=== PATIENT | male | born 1970 | race American Indian/Alaskan Native ===

== ENCOUNTER 2021-02-24 15:11 | Emergency (ER) | payer BC, OTHER ==
--- NOTE | 2021-02-24 15:31 | EDM.PDOC ---
ED HPI GENERAL MEDICAL PROBLEM - General Chief Complaint: Cardiovascular Problem Stated Complaint: CHEST PAIN Time Seen by Provider: 02/24/21 16:00 Source of Information: Reports: Patient, RN. Denies: Old Records History Limitations: Reports: Other (no old records) - History of Present Illness INITIAL COMMENTS - FREE TEXT/NARRATIVE: 51 yo NA male 1 ppd smoker presents with lateral chest tightness. No associated sx's. Has had this in the past and it was not worked up. No SOB, nausea or diaphoresis. No pHx of CAD. Sx's sometimes worse with deep breathing. No injury to his chest wall recalled. Denies a hx of AODM. Onset: Today, Sudden Onset Date: 02/24/21 Duration: Hour(s):, Waxing/Waning Location: Reports: Chest Quality: Reports: Other (mild lateral tightness) Severity: Mild Improves with: Reports: Other (shallow breathing) Worsens with: Reports: Breathing (deep) Context: Reports: Other (See HPI) Associated Symptoms: Reports: Chest Pain. Denies: Cough, Diaphoresis, Fever/Chills, Nausea/Vomiting, Shortness of Breath Treatments PARTS SPECIALIST: Reports: Other (see below) (none) - Related Data Allergies Allergy/AdvReac Type Severity Reaction Status Date / Time No Known Allergies Allergy Verified 02/24/21 15:32 Home Meds: Home Meds NK [No Known Home Meds] 02/24/21 [History] ED ROS GENERAL - Review of Systems Review Of Systems: See Below Constitutional: Reports: No Symptoms HEENT: Reports: No Symptoms Respiratory: Denies: Shortness of Breath, Wheezing, Pleuritic Chest Pain, Cough, Sputum, Hemoptysis Cardiovascular: Reports: Chest Pain. Denies: Blood Pressure Problem, Dyspnea on Exertion, Edema, Palpitations, Syncope GI/Abdominal: Reports: No Symptoms : Reports: No Symptoms Musculoskeletal: Reports: No Symptoms Skin: Reports: No Symptoms Neurological: Reports: No Symptoms ED EXAM, GENERAL - Physical Exam Exam: See Below Exam Limited By: No Limitations General Appearance: Alert, WD/WN, No Apparent Distress, Obese Eye Exam: Bilateral Eye: Normal Inspection Ears: Normal External Exam, Normal Canal, Hearing Grossly Normal Ear Exam: Bilateral Ear: Auricle Normal, Canal Normal Nose: Normal Inspection, No Blood Throat/Mouth: Normal Inspection, Normal Lips, Normal Oropharynx, Normal Voice, No Airway Compromise Head: Atraumatic, Normocephalic Neck: Normal Inspection Respiratory/Chest: No Respiratory Distress, Lungs Clear, Normal Breath Sounds, No Accessory Muscle Use. No: Chest Non-Tender (lateral chest wall tenderness, bilateral, present) Cardiovascular: Regular Rate, Rhythm, No Edema GI/Abdominal: Normal Bowel Sounds, Soft, Non-Tender, No Distention Back Exam: Normal Inspection. No: CVA Tenderness (R), CVA Tenderness (L) Extremities: Normal Inspection, Normal Range of Motion, Non-Tender, No Pedal Edema Neurological: Alert, Oriented, CN II-XII Intact, Normal Cognition, No Motor/Sensory Deficits Psychiatric: Normal Affect, Normal Mood Skin Exam: Warm, Dry, Intact, Normal Color, No Rash #1 Interpretation EKG Date: 02/24/21 Time: 15:25 Rhythm: NSR Rate (Beats/Min): 61 [place]: Normal P-Wave: Present QRS: Normal ST-T: Normal QT: Normal Comparison: NA - No Prior EKG Course - Vital Signs Last Recorded V/S: Last Vital Signs Temp 36.3 C 02/24/21 15:39 Pulse 68 02/24/21 15:39 Resp 14 02/24/21 15:39 BP 138/66 02/24/21 15:39 Pulse Ox 98 02/24/21 15:39 - Orders/Labs/Meds Orders: Active Orders 24 hr Category Date Time Status Cardiac Monitoring [RC] .As Directed Care 02/24/21 16:06 Active EKG Documentation Completion [RC] ASDIRECTED Care 02/24/21 15:24 Active EKG 12 Lead [EK] Routine Ther 02/24/21 15:23 Ordered Labs: Laboratory Tests 02/24/21 Range/Units 16:17 Sodium 142 (140-148) mmol/L Potassium 4.0 (3.6-5.2) mmol/L Chloride 101 (100-108) mmol/L Carbon Dioxide 33 H (21-32) mmol/L Anion Gap 12.0 (5.0-14.0) mmol/L BUN 13 (7-18) mg/dL Creatinine 1.0 (0.8-1.3) mg/dL Est Cr Clr Drug Dosing 86.45 mL/min Estimated GFR (MDRD) > 60 (>60) Glucose 110 H (74-106) mg/dL Calcium 10.9 H (8.5-10.1) mg/dL Troponin I < 0.017 (0.000-0.056) ng/mL Departure - Departure Time of Disposition: 17:00 Disposition: Home, Self-Care 01 Condition: Fair Clinical Impression: Atypical chest pain, Tobacco use disorder Instructions: Smoking Tobacco Information, Adult, Nonspecific Chest Pain, Adult Referrals: PCP,None [Primary Care Provider] - Forms: ED Department Discharge Additional Instructions: There was no evidence today that this is your heart and you have not had a heart attack. Your tobacco use makes you high risk for heart disease. I recommend that you consult with a primary care provider to get either a cardiology consultation or an exercise stress test. Return if you are worse. Sepsis Event Note (ED) - Focused Exam Vital Signs: Vital Signs Temp Pulse Resp BP Pulse Ox 02/24/21 15:39 36.3 C 68 14 138/66 98 - My Orders Last 24 Hours: My Active Orders 02/24/21 15:23 EKG 12 Lead [EK] Routine 02/24/21 15:24 EKG Documentation Completion [RC] ASDIRECTED 02/24/21 16:06 Cardiac Monitoring [RC] .As Directed - Assessment/Plan Last 24 Hours: My Active Orders 02/24/21 15:23 EKG 12 Lead [EK] Routine 02/24/21 15:24 EKG Documentation Completion [RC] ASDIRECTED 02/24/21 16:06 Cardiac Monitoring [RC] .As Directed
== END 2021-02-24 17:17 | disposition home or self-care (01) ==
LOC: JP.ED 15:11
DX: R07.89 Other chest pain (principal); Z72.0 Tobacco use
CPT/HCPCS: 36415; 80048; 84484; 93005; 99285-25

== ENCOUNTER 2024-11-18 10:56 | Emergency (ER) | payer BC ==
[2024-11-18] MEDS ORDERED: Sodium Chloride 0.9% 10 ML Syringe FLUSH PRN (11:35)
[2024-11-18 11:48] LABS: BASE EXCESS VENOUS 3.6 mm/L; BICARBONATE,VENOUS 28.2 mmol/L; CARBOXYHEMOGLOBIN 2.2 % (0.0-1.6); METHEMOGLOBIN 0.8 %; O2 SATURATION VENOUS 75.4; OXYHEMOGLOBIN 73.1 %; PCO2 VENOUS 44.2 mm/Hg; PH,VENOUS 7.421 (7.350-7.450); PO2 VENOUS 40.6 mm/Hg; TOTAL HEMOGLOBIN 16.7 g/dL (13.5-18.0)
[2024-11-18 11:50] LABS: BASOPHILS PERCENT AUTO 1.3 % (0.1-1.3); EOSINOPHILS ABSOLUTE AUTO 0.28 K/uL (0.00-0.40); EOSINOPHILS PERCENT AUTO 3.6 % (0.0-5.4); HEMATOCRIT 45.4 % (38.4-49.7); HEMOGLOBIN 16.3 g/dL (12.9-16.9); IMMATURE GRAN ABSOLUTE AUTO 0.03 K/uL (0.00-0.23); IMMATURE GRAN PERCENT AUTO 0.4 % (0.0-0.7); MEAN CORPUSCULAR HEMOGLOBIN 32.7 pg (31.6-35.5); MEAN CORPUSCULAR HGB CONC 35.9 g/dL (31.6-35.5); MEAN CORPUSCULAR VOLUME 91.2 fL (81.4-99.0); MONOCYTES ABSOLUTE AUTO 0.55 K/uL (0.20-0.90); MONOCYTES PERCENT AUTO 7.2 % (3.3-12.6); NEUTROPHILS ABSOLUTE AUTO 4.72 K/uL (1.0-7.6); NEUTROPHILS PERCENT AUTO 61.5 % (40.0-78.1); PLATELET COUNT,PLT 116 K/uL (130-375); RED BLOOD CELL COUNT 4.98 M/uL (4.14-5.76); WHITE BLOOD CELL COUNT,WBC 7.7 K/uL (3.2-11.0)
[2024-11-18] MEDS ORDERED: Glucagon,Human Recombinant 1 MG Vial IM PRN ×2 (11:55→13:22)
[2024-11-18] MEDS ORDERED: 50% Dextrose in Water 50 ML Syringe IVPUSH PRN ×2 (11:55→13:22)
[2024-11-18 12:03] LABS: HEMOGLOBIN A1C 9.8 % (4.5-6.2)
[2024-11-18] MEDS: Insulin Regular, Human 100 Units/ML 3 ML Vial SUBCUT ONE ×2 (12:03→14:15)
[2024-11-18] MEDS: Sodium Chloride 0.9% 1,000 ML IV ONE (12:03)
[2024-11-18 12:20] LABS: ALANINE AMINOTRANSFERASE,ALT 69 U/L (12-78); ALBUMIN 3.9 g/dL (3.4-5.0); ALKALINE PHOSPHATASE 139 U/L (46-116); ASPARTATE AMNIOTRANSFERASE,AST 59 U/L (15-37); BILIRUBIN TOTAL 1.5 mg/dL (0.2-1.0); BLOOD UREA NITROGEN,BUN 15 mg/dL (7-18); CALCIUM 9.4 mg/dL (8.5-10.1); CARBON DIOXIDE,CO2 28 mmol/L (21-32); CHLORIDE,CL 93 mmol/L (100-108); CREATININE 1.2 mg/dL (0.8-1.3); EST CRCL DRUG DOSING (CG) 72.01 mL/min; ESTIMATED GFR 73 mL/min (>60); POTASSIUM,K 4.3 mmol/L (3.6-5.2); PROTEIN TOTAL,TP 8.5 g/dL (6.4-8.2); SODIUM,NA 130 mmol/L (140-148)
[2024-11-18 12:21] LABS: A/G RATIO 0.9 (1.2-2.2); ANION GAP 13.3 mmol/L (5.0-14.0); GLUCOSE RANDOM 582 mg/dL (74-106)
[2024-11-18 12:48] LABS: APPEARANCE,URINE SLIGHTLY CLOUDY (CLEAR); BILIRUBIN,URINE NEGATIVE (NEGATIVE); COLOR,URINE YELLOW (YELLOW); GLUCOSE,URINE 500 mg/dL (NEGATIVE); KETONES,URINE NEGATIVE (NEGATIVE); LEUKOCYTE ESTERASE,URINE NEGATIVE (NEGATIVE); NITRITE,URINE NEGATIVE (NEGATIVE); OCCULT BLOOD,URINE NEGATIVE (NEGATIVE); PH,URINE 5.5 (5.0-8.0); PROTEIN,URINE NEGATIVE (NEGATIVE); UROBILINOGEN,URINE 0.2 EU/dL (0.2-1.0)
[2024-11-18 12:57] LABS: AMORPHOUS SEDIMENT,URINE RARE; BACTERIA,URINE NOT SEEN; EPITHELIAL CELLS,URINE RARE; MUCUS,URINE NOT SEEN; RBC,URINE NOT SEEN (0-5); WBC,URINE 0-5 (0-5)
== END 2024-11-18 16:00 | disposition home or self-care (01) ==
LOC: JP.ED 10:56
DX: R73.9 Hyperglycemia, unspecified (principal); Z79.82 Long term (current) use of aspirin; Z79.899 Other long term (current) drug therapy
CPT/HCPCS: 36415; 80053; 81001; 82009; 82803; 82947; 83036; 83605; 85025; 96360; 99284; J1815